=== PATIENT | female | born 1980 | race Two or more races ===

== ENCOUNTER 2024-12-15 05:09 | Emergency (ER) | payer MEDICAID, OTHER ==
[~2024-12-15] VITALS: Ht 160 cm; Wt 60.7 kg
--- NOTE | 2024-12-15 05:59 | DVH ---
EXAM: XR Right Wrist Complete, 3 or More Views CLINICAL INDICATION: SWELLING AND PAIN TECHNIQUE: Frontal, lateral and oblique views of the right wrist. COMPARISON: None FINDINGS: BONES/JOINTS: See below. SOFT TISSUES: Soft tissue swelling without acute fracture. No radiopaque foreign body. OTHER FINDINGS: . IMPRESSION: 1. Soft tissue swelling without acute fracture. 2. If symptoms persist, further evaluation with CT is recommended.
[2024-12-15 07:29] VITALS: BP 95/69; PULSE 89; RESP 16; TEMP 98.1; O2SAT 97
[2024-12-15] MEDS ORDERED: IBUP-1455 PO (07:41)
--- NOTE | 2024-12-15 07:41 | ED.PDOC ---
Musculoskeletal HPI Comments 44-year-old presents with a chief complaint of right wrist pain for the last two days after lifting a heavy box. Also notes a superficial 0.5 x 0.5 firm nodule to the distal radius. Reports it is tender to touch and radiates to the forearm. Taking Tylenol with some improvement Chief Complaint: Upper Extremity Time Seen by MD: 06:29 Primary Care Provider: UNKNOWN Reviewed Notes: Nurses Notes, Medications, Allergies Allergies: Coded Allergies: NO KNOWN ALLERGIES (Unverified , 12/15/24) Information Source: Patient Mode of Arrival: Ambulatory Past Medical History PAST MEDICAL HISTORY: Denies Family History Family History: Reviewed,noncontributory to illness Social History Smoker: Non-Smoker Alcohol: Denies ETOH Use Drugs: Denies Drug Use All Other Systems: Reviewed and Negative (per hpi) Physical Exam General Appearance: No Apparent Distress, Normal HEENT: Normal ENT Inspection, Pharynx Normal, TMs Normal Neck: Full Range of Motion, Non-Tender, Normal, Normal Inspection Respiratory: Chest Non-Tender, Lungs Clear, No Accessory Muscle Use, No Respiratory Distress, Normal Breath Sounds Cardiovascular: No Edema, No JVD, No Murmur, No Gallop, Normal Peripheral Pulses, Regular Rate/Rhythm Breast Exam: Deferred Gastrointestinal: No Organomegaly, Non Tender, No Pulsatile Mass, Normal Bowel Sounds, Soft Genitalia: Deferred Pelvic: Deferred Rectal: Deferred Extremities: No calf tenderness, Normal capillary refill, Normal inspection, Normal range of motion, Non-tender, No pedal edema Musculoskeletal : Apperance: Normal Neurologic: Alert, oracle manufacturing consultant II-XII nml as Tested, No Motor Deficits, Normal Affect, Normal Mood, No Sensory Deficits Cerebellar Function: Normal Reflexes: Normal Skin: Dry, Normal Color, Warm Lymphatic: No Adenopathy Was a procedure done? Was a procedure done?: No Images 1 - .5 x .5 nodule. Differential Diagnosis EXT Differential Diagnosis: Sprain X-Ray, Labs, Meds, VS Vital Signs Date Time Temp Pulse Resp B/P (MAP) Pulse Ox O2 Delivery O2 Flow Rate FiO2 12/15/24 07:29 89 16 97 Room Air 12/15/24 07:29 98.1 71 18 95/69 (78) 97 98.1 12/15/24 05:20 98.1 71 16 107/73 (84) 96 98.1 X-Ray, Labs, Meds, VS Comment History and examination consistent of muscular injury No indication for further imaging at this time. Low likelihood of bony or more serious injury, VSS, pt stable Take IBU 600 w/ food as needed for pain Recommended heat therapy Reviewed RICE management Avoid heavy lifting or strenuous activity Recommended range of motion exercises and limit heavy activity for 1 week If no improvement advised patient to return to the emergency department for follow-up. Time of 1ST Reevaluation: 07:38 Reevaluation 1ST: Improved Patient Education/Counseling: Diagnosis, Treatment Family Education/Counseling: Diagnosis, Treatment Departure 1 Departure Time of Disposition: 07:40 Impression: Primary Impression: Arm pain, right Disposition: 01 HOME / SELF CARE / HOMELESS Condition: Fair e-Prescriptions Ibuprofen Micronized (Ibuprofen) 800 Mg Tab 800 MG PO TID for 10 Days, #30 TAB 0 Refills Prov: FRED SOMMERS NP 12/15/24 Discharged With: Self Critical Care Note Critical Care Time?: No Stability Stability form required: No Heart Score Heart Score: Heart Score Response (Comments) Value History N/A 0 EKG N/A 0 Age N/A 0 Risk Factors N/A 0 Troponin N/A 0 Total 0 FRED SOMMERS NP Dec 15, 2024 07:41
== END 2024-12-15 07:52 | disposition home or self-care (01) ==
LOC: ER 05:09
DX: M79.601 Pain in right arm (principal)
CPT/HCPCS: 73110

== ENCOUNTER 2025-05-04 05:34 | Emergency (ER) | payer MEDICAID, OTHER ==
[~2025-05-04] VITALS: Ht 160 cm; Wt 63.5 kg
[~2025-05-04 05:34] MED LIST: IBUP-1455 PO
--- NOTE | 2025-05-04 06:54 | ED.PDOC ---
History of Present Illness HPI Comments 44 year old female presents to the ED with a chief complaint of headache onset 3 days. She has been experiencing headache for the past 3 days, rates pain 10/10 as well as nausea and blurred vision. Patient states she has an aneurysm, follows up with specialist every June. For the past day, she noticed a lump behind LT ear, rates pain 7/10. PMHx seizure, aneurysm. Denies fever, chills, cough, cold, congestion, dizziness, vomiting, diarrhea, ear pain, chest pain, shortness of breath. No other symptoms or modifying factors present at this time. Chief Complaint: Headache Time Seen by MD: 06:49 Primary Care Provider: UNKNOWN Reviewed Notes: Medications, Allergies Information Source: Patient Mode of Arrival: Ambulatory Severity: Moderate Timing: Days Duration: Since onset Prehospital treatment: None Past Medical History PAST MEDICAL HISTORY: Seizures Past Medical History (Other): aneurysm Surgical History: Denies all surgeries COMPUTER SYSTEM SPECIALIST History: No Pertinent COMPUTER SYSTEM SPECIALIST History Family History Family History: Reviewed,noncontributory to illness Social History Smoker: Other Alcohol: Denies ETOH Use Drugs: Denies Drug Use Lives In: Home Constitutional: denies: chills, diaphoresis, fatigue, fever, malaise, sweats, weakness, others EENTM: reports: blurred vision, others (lump behind LT ear); denies: double vision, ear bleeding, ear discharge, ear drainage, ear pain, ear ringing, eye pain, eye redness, hearing loss, mouth pain, mouth swelling, nasal discharge, nose bleeding, nose congestion, nose pain, photophobia, tearing, throat pain, throat swelling, voice changes Respiratory: denies: cough, hemoptysis, orthopnea, SOB at rest, shortness of breath, SOB with excertion, stridor, wheezing, others Cardiovascular: denies: chest pain, dizzy spells, diaphoresis, Dyspnea on exertion, edema, irregular heart beat, left arm pain, lightheadedness, palpitations, PND, syncope, others Gastrointestinal: reports: nausea; denies: abdomen distended, abdominal pain, blood streaked bowels, constipated, diarrhea, dysphagia, difficulty swallowing, hematemesis, melena, poor appetite, poor fluid intake, rectal bleeding, rectal pain, vomiting, others Genitourinary: denies: abnormal vagina bleeding, burning, dyspareunia, dysuria, flank pain, frequency, hematuria, incontinence, pain, , vagina discharge, urgency, others Neurological: reports: headache; denies: dizziness, fainting, left sided numbness, left sided weakness, numbness, paresthesia, pre-existing deficit, right sided numbness, right sided weakness, seizure, speech problems, tingling, tremors, weakness, others Musculoskeletal: denies: back pain, gout, joint pain, joint swelling, muscle pain, muscle stiffness, neck pain, others Integumetry: denies: bruises, change in color, change in hair/nails, dryness, laceration, lesions, lumps, rash, wounds, others Allergic/Immunocompromised: denies: Difficulty Healing, Frequent Infections, Hives, Itching, others Hematologic/Lymphatic: denies: anemia, blood clots, easy bleeding, easy bruising, swollen glands, others Endocrine: denies: excessive hunger, excessive sweating, excessive thirst, excessive urination, flushing, intolerance to cold, intolerance to heat, unexplained weight gain, unexplained weight loss, others Psychiatric: denies: anxiety, bipolar disorder, depression, hopeless, panic disorder, schizophrenia, sleepless, suicidal, others All Other Systems: Reviewed and Negative Physical Exam General Appearance: Mild Distress, Normal HEENT: Normal ENT Inspection, Pharynx Normal, TMs Normal, Other (Bump in the left occipital scalp possible bug bite little tender) Neck: Full Range of Motion, Non-Tender, Normal, Normal Inspection Respiratory: Chest Non-Tender, Lungs Clear, No Accessory Muscle Use, No Respiratory Distress, Normal Breath Sounds Cardiovascular: No Edema, No JVD, No Murmur, No Gallop, Normal Peripheral Pulses, Regular Rate/Rhythm Breast Exam: Deferred Gastrointestinal: No Organomegaly, Non Tender, No Pulsatile Mass, Normal Bowel Sounds, Soft Genitalia: Epididymis Pelvic: Deferred Rectal: Deferred Extremities: No calf tenderness, Normal capillary refill, Normal inspection, Normal range of motion, Non-tender, No pedal edema Neurologic: Alert, multiple slide operator II-XII nml as Tested, No Motor Deficits, Normal Affect, Normal Mood, No Sensory Deficits Cerebellar Function: Normal Reflexes: Normal Skin: Dry, Normal Color, Warm Peripheral Pulses: 1+ carotid (R), 1+ carotid (L) Lymphatic: No Adenopathy Was a procedure done? Was a procedure done?: No Differential Dx Considerations may include: Occipital headache bug bite history of aneurysm history of seizure disorder X-Ray, Labs, Meds, VS Vital Signs Date Time Temp Pulse Resp B/P (MAP) Pulse Ox O2 Delivery O2 Flow Rate FiO2 05/04/25 07:21 97.8 80 18 106/78 (87) 98 97.8 05/04/25 07:21 80 18 98 Room Air 05/04/25 05:36 98.0 71 15 114/76 100 98.0 Current Medications Medications (Trade) Dose Ordered Sig/Ta Route Start Time Stop Time Status Last Admin Metoclopramide HCl (Reglan Tablet) 10 mg ONCE ONCE PO 05/04/25 07:00 05/04/25 07:01 DC 05/04/25 07:03 X-Ray, Labs, Meds, VS Comment Course in the [employer] eventful patient came back complaining of headache and also bump in her scalp Physical examination is normal the patient had history of aneurysm but she is being followed and she will have another follow up in June At this time the patient is doing well she has a small little bump in the left occipital scalp which is probably bug bite Patient will be discharged home to follow up with her PCP Time of 1ST Reevaluation: 07:19 Reevaluation 1ST: Unchanged Time of 2ND Reevaluation: 08:16 Reevaluation 2ND: Improved Consultation: PCP, Neurology Patient Education/Counseling: Diagnosis, Treatment, Prognosis, Need For Follow Up Family Education/Counseling: Diagnosis, Treatment, Prognosis, Need For Follow Up, No Family Present SEPSIS Sepsis Screen Date sepsis recognized/suspect: May 04, 2025 Time Sepsis recognized/suspect: 0545 Recent Procedure: No On Antibiotic Therapy: No Respiratory Rate >20: No Heart Rate >90: No Temp<36 C (96.8 F) or >38.3 C: No SBP <90 or MAP <65 mmHG: No New Acute Mental Status Change: No Is the patient on CPAP, BIPAP,: No Vital Signs Date Time Temp Pulse Resp B/P (MAP) Pulse Ox O2 Delivery O2 Flow Rate FiO2 05/04/25 07:21 97.8 80 18 106/78 (87) 98 97.8 05/04/25 07:21 80 18 98 Room Air 05/04/25 05:36 98.0 71 15 114/76 100 98.0 Medications Medications Dose Ordered Sig/Ta Route Start Time Stop Time Status Last Admin Dose Admin Metoclopramide HCl 10 mg ONCE ONCE PO 05/04/25 07:00 05/04/25 07:01 DC 05/04/25 07:03 Departure 1 Departure Time of Disposition: 08:18 Impression: Primary Impression: Tension headache Additional Impression: Bug bite without infection Qualified Codes: W57.XXXA - Bitten or stung by nonvenomous insect and other nonvenomous arthropods, initial encounter Disposition: HOME / SELF CARE / HOMELESS Condition: Fair Additional Instructions: Follow up With your neurologist for the aneurysm Discharged With: Self Critical Care Note Critical Care Time?: No Stability Stability form required: No Heart Score Heart Score: Heart Score Response (Comments) Value History N/A 0 EKG N/A 0 Age 45-64 1 Risk Factors No known risk factors 0 Troponin Normal limit 0 Total 1 I personally scribed for KRISTAN KWOK MD ([email or web address]) on 05/04/25 at 06:54. Electronically submitted by Anna Rogers ([email or web address]). KRISTAN KWOK MD May 04, 2025 06:54
[2025-05-04] MEDS: METOCLOPRAMIDE HCL 10 MG TAB PO ONE (07:03)
[2025-05-04] MEDS: KETOROLAC TROMETH 60MG/2ML VIAL IM ONE (07:07)
[2025-05-04 07:21] VITALS: BP 106/78; PULSE 80; RESP 18; TEMP 97.8; O2SAT 98
== END 2025-05-04 08:27 | disposition home or self-care (01) ==
LOC: ER 05:34 → MERGE 05:34 → ER 08:26
DX: S00.86XA Insect bite (nonvenomous) of other part of head, initial encounter (principal); G44.209 Tension-type headache, unspecified, not intractable; F17.200 Nicotine dependence, unspecified, uncomplicated; W57.XXXA Bitten or stung by nonvenomous insect and other nonvenomous arthropods, initial encounter; Y93.89 Activity, other specified; Y92.89 Other specified places as the place of occurrence of the external cause; Y99.8 Other external cause status
CPT/HCPCS: 99283; J8597; J1885